=== PATIENT | female | born 1980 | race Caucasian/White ===

== ENCOUNTER → 2017-03-30 | Outpatient (CLI) | payer OTHER ==
[~2017-03-30] MED LIST: BENTYL10 MG PO; CELEXA40 MG PO; LOMOTIL 0.025 M1 TA1 PO; PRENTAL 1 PLUS1 TAB; PRILOSEC20 M2 PO; SYNTHROID0.15 MG PO; Synthroid,Lev200 MCG PO; TOPAMAX100 MG PO; VICTOZA6 MG/ML SC; XANAX0.5 MG PO; ZOLOFT100 MG PO; ZYRTEC10 MG PO
== END | disposition home or self-care (01) ==
LOC: US 15:57
DX: R10.2 Pelvic and perineal pain (principal)

== ENCOUNTER → 2017-06-05 | Outpatient (CLI) | payer OTHER | END | disposition home or self-care (01) | LOC: LAB 12:50 | DX: R19.5 Other fecal abnormalities (principal) ==

== ENCOUNTER → 2018-05-09 | Outpatient (CLI) | payer OTHER | END | disposition home or self-care (01) | LOC: US 13:30 | DX: R60.0 Localized edema (principal) ==

== ENCOUNTER → 2018-05-22 | Outpatient (CLI) | payer OTHER | END | disposition home or self-care (01) | LOC: CARD 05-21 12:00 | DX: I07.1 Rheumatic tricuspid insufficiency (principal); I50.9 Heart failure, unspecified ==

== ENCOUNTER → 2021-04-19 | Outpatient (CLI) | payer OTHER | END | disposition home or self-care (01) | LOC: US 10:11 | PROVIDERS: ATTEND Nurse Practitioner Women's Health | DX: N92.6 Irregular menstruation, unspecified (principal) ==

== ENCOUNTER → 2022-12-15 | Outpatient (CLI) | payer OTHER ==
[2022-12-15 11:21] LABS: BASO % 0.4 % (0.0-1.0); EOS # 0.2 10*3/uL (0.0-0.4); EOS % 1.8 % (1.0-4.0); LYMPH # 2.2 10*3/uL (1.3-4.4); LYMPH % 23.7 % (27.0-41.0); MEAN CELL VOLUME 87.8 fl (81.0-99.0); MEAN CORPUSCULAR HGB 29.5 pg (27.0-31.0); MEAN CORPUSCULAR HGB CONC 33.6 g/dl (33.0-37.0); MEAN PLATELET VOLUME 9.4 fl (9.6-12.3); MONO # 0.5 10*3/uL (0.1-1.0); MONO % 5.5 % (3.0-9.0); NEUT # 6.2 10*3/uL (2.3-7.9); NEUT % 68.4 % (47.0-73.0); PLATELET COUNT AUTOMATED 287 10*3/uL (130-400); RED BLOOD COUNT 4.44 10*6/uL (4.10-5.10); WHITE BLOOD COUNT 9.1 10*3/uL (4.8-10.8)
[2022-12-15 12:05] LABS: ALKALINE PHOSPHATASE 79 U/L (46-116); BUN 16 mg/dl (9-23); CHLORIDE 99 mmol/L (98-107); CHOLESTEROL 165 mg/dL (<200); FREE T4 1.69 ng/dl (0.89-1.76); LDL CHOLESTEROL 96 mg/dL (9-159); SGPT/ALT 13 U/L (10-49); THYROID STIM HORMONE (HS) 1.183 uIU/ml (0.550-4.780); TOTAL PROTEIN 7.1 gm/dL (6.0-8.0); TRIGLYCERIDES 104 mg/dl (<150)
[2022-12-15 12:17] LABS: VITAMIN D, 25-HYDROXY 74.8 ng/mL (30-100)
== END | disposition home or self-care (01) ==
LOC: LAB 10:48
PROVIDERS: ATTEND Internal Medicine
DX: Z13.0 Encounter for screening for diseases of the blood and blood-forming organs and certain disorders involving the immune mechanism (principal); Z13.1 Encounter for screening for diabetes mellitus; Z13.21 Encounter for screening for nutritional disorder; Z13.220 Encounter for screening for lipoid disorders; Z13.228 Encounter for screening for other metabolic disorders; Z13.89 Encounter for screening for other disorder; Z13.6 Encounter for screening for cardiovascular disorders; Z13.9 Encounter for screening, unspecified; I10 Essential (primary) hypertension; D05.12 Intraductal carcinoma in situ of left breast; E03.9 Hypothyroidism, unspecified